=== PATIENT | female | born 1975 ===

== ENCOUNTER 2017-03-04 10:18 | Emergency (ER) | payer MEDICAID, OTHER ==
[2017-03-04 10:51] VITALS: BP 100/62; PULSE 65; RESP 17; TEMP 98.1; O2SAT 100
[2017-03-04 10:53] VITALS: BMI 27.1
--- NOTE | 2017-03-04 11:34 | C.PDOC ---
History Of Present Illness 41 y/o female, presents to ED with c/o left lower back pain, that radiates down her leg for 2 weeks. Patient reports she has been assisting her mother in ADL, lifting her and moving her. No improvement with Tylenol. Denies bladder or bowel dysfunction, numbness, weakness, abdominal pain, dysuria, hematuria, nausea, vomiting, or other associated symptoms. Notes occasional tingling sensation in her left leg. Time Seen by Provider: 03/04/17 10:58 Chief Complaint (Nursing): Back Pain History Per: Patient History/Exam Limitations: no limitations Onset/Duration Of Symptoms: Days Current Symptoms Are (Timing): Still Present Quality Of Discomfort: "Pain" Previous Symptoms: None Exacerbating Factor(s): Movement Past Medical History Reviewed: Historical Data, Nursing Documentation, Vital Signs Vital Signs: Last Vital Signs Temp 98.1 F 03/04/17 10:50 Pulse 65 03/04/17 10:50 Resp 17 03/04/17 10:50 BP 100/62 03/04/17 10:50 Pulse Ox 100 03/04/17 11:46 - Medical History PMH: Gastritis Surgical History: Appendectomy (SEP 2014) Family History: States: Unknown Family Hx - Social History Hx Tobacco Use: No Hx Alcohol Use: No Hx Substance Use: No - Immunization History Hx Tetanus Toxoid Vaccination: No Hx Influenza Vaccination: Yes (2014) Hx Pneumococcal Vaccination: No Review Of Systems Except As Marked, All Systems Reviewed And Found Negative. Constitutional: Negative for: Fever, Chills Gastrointestinal: Negative for: Nausea, Vomiting Genitourinary: Negative for: Dysuria, Frequency, Hematuria Musculoskeletal: Positive for: Back Pain, Leg Pain Skin: Negative for: Rash Neurological: Negative for: Weakness, Numbness Physical Exam - Physical Exam Appears: Non-toxic, No Acute Distress Skin: Warm, Dry Head: Atraumatic, Normacephalic Neck: Normal ROM, No Midline Cervical Tenderness, No Paracervical Tenderness, Supple Chest: Symmetrical Cardiovascular: Rhythm Regular Respiratory: Normal Breath Sounds, No Rales, No Rhonchi, No Wheezing Gastrointestinal/Abdominal: Soft, No Tenderness Back: Normal Inspection, Paraspinal Tenderness (left lumbar) Extremity: Normal ROM, Capillary Refill (< 2 sec. ) Extremity: Bilateral: No Pedal Edema, Normal Color And Temperature Pulses: Left Dorsalis Pedis: Normal, Right Dorsalis Pedis: Normal Neurological/Psych: Oriented x3, Normal Speech, Normal Cognition, Normal Motor, Normal Sensation ED Course And Treatment O2 Sat by Pulse Oximetry: 100 (RA) Pulse Ox Interpretation: Normal Progress Note: Treated with Flexeril and Toradol. Disposition Counseled Patient/Family Regarding: Diagnosis, Need For Followup, Rx Given - Disposition Referrals: Clinic,Med Surg [Primary Care Provider] - [facility] [Outside] [facility] [Outside] Disposition: HOME/ ROUTINE Disposition Time: 11:41 Condition: GOOD Additional Instructions: Trate de evitar levantar objetos pesados. Industry los medicamentos segn lo prescrito. No trabaje, opere maquinaria o maneje cuando est tomando relajante muscular, le albin dormir. Seguimiento en la clnica mdica en unos carver. Aplique envases calientes o fros en la espalda, lo que se sienta mejor para usted. 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 - Scribe Statement The provider has reviewed the documentation as recorded by the Kaliaibsteven Thomas All medical record entries made by the Kaliaibsteven were at my direction and personally dictated by me. I have reviewed the chart and agree that the record accurately reflects my personal performance of the history, physical exam, medical decision making, and the department course for this patient. I have also personally directed, reviewed, and agree with the discharge instructions and disposition.
== END 2017-03-04 12:03 | disposition home or self-care (01) ==
LOC: SUPCPDRO 10:18 → C.ER 10:18
DX: S33.5XXA Sprain of ligaments of lumbar spine, initial encounter (principal); X58.XXXA Exposure to other specified factors, initial encounter
CPT/HCPCS: 96372; 99283; J1885

== ENCOUNTER 2018-11-30 12:35 | Emergency (ER) | payer MEDICAID, OTHER ==
[2018-11-30 12:36] VITALS: BMI 27.1
[2018-11-30 12:41] VITALS: BP 120/81; PULSE 80; RESP 18; TEMP 98.2; O2SAT 100
--- NOTE | 2018-11-30 14:06 | C.PDOC ---
History Of Present Illness 42 year old female presents to the ER with fever, cough, and sore throat for the past 2-3 days. She has been taking OTC medication with no relief. Denies chest pain or SOB. Time Seen by Provider: 11/30/18 13:11 Chief Complaint (Nursing): ENT Problem History Per: Patient History/Exam Limitations: None Onset/Duration Of Symptoms: Days (2-3) Current Symptoms Are (Timing): Still Present Quality (Mouth/Throat): Tenderness Symptoms Have Been: Continuous Past Medical History Reviewed: Historical Data, Nursing Documentation, Vital Signs Vital Signs: Last Vital Signs Temp 98.2 F 11/30/18 12:36 Pulse 80 11/30/18 12:36 Resp 18 11/30/18 12:36 BP 120/81 11/30/18 12:36 Pulse Ox 100 11/30/18 12:36 - Medical History PMH: Gastritis Surgical History: Appendectomy (SEP 2014) Family History: States: Unknown Family Hx - Social History Hx Tobacco Use: No Hx Alcohol Use: No Hx Substance Use: No - Immunization History Hx Tetanus Toxoid Vaccination: No Hx Influenza Vaccination: Yes (2014) Hx Pneumococcal Vaccination: No Review Of Systems Constitutional: Positive for: Fever ENT: Positive for: Throat Pain Cardiovascular: Negative for: Chest Pain, Palpitations Respiratory: Positive for: Cough. Negative for: Shortness of Breath Gastrointestinal: Negative for: Vomiting, Diarrhea Physical Exam - Physical Exam Appears: Non-toxic Skin: Normal Color, Warm, Dry Head: Atraumatic, Normacephalic Eye(s): bilateral: Normal Inspection Ear(s): Bilateral: Normal Nose: Normal Oral Mucosa: Moist Throat: Erythema, No Exudate Neck: Normal, Supple Chest: Symmetrical, No Tenderness Cardiovascular: Rhythm Regular Respiratory: Normal Breath Sounds, No Rales, No Rhonchi, No Wheezing Gastrointestinal/Abdominal: Soft, No Tenderness Back: No CVA Tenderness Neurological/Psych: Oriented x3, Normal Speech ED Course And Treatment O2 Sat by Pulse Oximetry: 100 (Room air) Pulse Ox Interpretation: Normal Medical Decision Making Medical Decision Making: Patient is resting comfortably in no acute distress, vitals are stable, will discharge home on zithromax and instructed to follow up with PMD. Disposition - Disposition Referrals: [facility] [place] [Outside] Disposition: HOME/ ROUTINE Disposition Time: 14:03 Condition: GOOD Additional Instructions: Follow up with the medical doctor within 1-2 days. Return if worsened. Prescriptions: Azithromycin [Zithromax] 250 mg PO DAILY #4 tab predniSONE [Prednisone] 10 mg PO BID #10 tab Instructions: Ear Infections (Otitis Media) (DC) Forms: [employer] (Polish) - Clinical Impression Clinical Impression: Otitis media - PA / TALENT ASSISTANT / Resident Statement MD/DO has reviewed & agrees with the documentation as recorded. - Scribe Statement The provider has reviewed the documentation as recorded by the Scribe Tien House All medical record entries made by the Kaliaibsteven were at my direction and personally dictated by me. I have reviewed the chart and agree that the record accurately reflects my personal performance of the history, physical exam, medical decision making, and the department course for this patient. I have also personally directed, reviewed, and agree with the discharge instructions and disposition.
== END 2018-11-30 14:14 | disposition home or self-care (01) ==
LOC: C.ER 12:35
DX: H66.90 Otitis media, unspecified, unspecified ear (principal)